=== PATIENT | female | born 1940 | race Caucasian/White ===

== ENCOUNTER 2023-10-06 21:14 | Inpatient (IN) | payer MEDICARE, BC ==
[~2023-10-06] VITALS: Ht 165.1 cm; Wt 62.6 kg
[2023-10-06] MEDS ORDERED: ACET-3117 PO (21:51)
[2023-10-06] MEDS ORDERED: LIDOCAINE VISCUS PO (21:51)
[2023-10-06] MEDS ORDERED: NYST5ORA PO (21:51)
[2023-10-06] MEDS ORDERED: LEVO100T10 PO (21:51)
[2023-10-06] MEDS ORDERED: ONDA-104 PO (21:51)
[2023-10-06] MEDS ORDERED: MAGN400O6 PO (21:51)
[2023-10-06] MEDS ORDERED: NIFE30TA91 PO (21:51)
[2023-10-06] MEDS ORDERED: DIME25TA2 PO (21:51)
[2023-10-06] MEDS ORDERED: PANT40TA2 PO (21:51)
[2023-10-06] MEDS ORDERED: SERT50TA PO (21:51)
[2023-10-06] MEDS ORDERED: LORA0.5T48 PO (21:51)
[2023-10-06] MEDS ORDERED: SIMV-49 PO (21:51)
[2023-10-06] MEDS ORDERED: DOCU100C36 PO (21:51)
[2023-10-06] MEDS ORDERED: NA P133E RC (21:51)
[2023-10-06] MEDS ORDERED: LEVE500T9 PO (21:51)
[2023-10-06] MEDS ORDERED: DEXA4TAB PO (21:51)
[2023-10-06] MEDS ORDERED: RIVA20TA PO (21:51)
[2023-10-06] MEDS ORDERED: VALS160T2 PO (21:51)
[2023-10-06] MEDS ORDERED: BISA10SU61 RC (21:51)
[2023-10-06 22:04] LABS: BASOPHILS % (AUTO) 0.3 % (0.0-2.0); HEMATOCRIT 35.9 % (31.2-41.9); HEMOGLOBIN 11.6 g/dL (10.9-14.3); LYMPHOCYTES # (AUTO) 0.7 K/uL (0.8-4.8); LYMPHOCYTES % (AUTO) 7.9 % (20.5-51.5); MEAN CORPUSCULAR HEMOGLOBIN 25.8 uug (24.7-32.8); MEAN CORPUSCULAR HGB CONC 32 g/dL (32.3-35.6); MEAN CORPUSCULAR VOLUME 80.2 fL (75.5-95.3); MONOCYTES # (AUTO) 0.3 K/uL (0.1-1.30); MONOCYTES % (AUTO) 3.2 % (0.0-11.0); NEUTROPHILS # (AUTO) 8.2 K/uL (1.8-8.9); NEUTROPHILS % (AUTO) 88.6 % (38.5-71.5); PLATELET COUNT (AUTO) 348 K/uL (179-408); RED BLOOD CELL COUNT(AUTO) 4.48 MIL/uL (3.63-4.92); RED CELL DISTRIBUTION WIDTH 18.2 % (12.3-17.7); WHITE BLOOD COUNT (AUTO) 9.2 K/uL (3.8-11.8)
[2023-10-06 22:05] LABS: DIFFERENTIAL COMMENT 1
[2023-10-06 22:14] LABS: CARBON DIOXIDE 29 mmol/L (21-32); CHLORIDE 101 mmol/L (98-107); CREATININE 0.7 mg/dL (0.6-1.3); GLUCOSE 160 mg/dL (74-106); SODIUM SERUM 139 mmol/L (136-145); UREA NITROGEN, BLOOD 23 mg/dL (7-18)
[2023-10-06 22:27] LABS: ALANINE AMINOTRANSFERASE 54 U/L (14-59); ALBUMIN 2.3 g/dL (3.4-5.0); ALKALINE PHOSPHATASE 961 U/L (50-136); ASPARTATE AMINOTRANSFERASE 14 U/L (15-37); BILIRUBIN,TOTAL 0.7 mg/dL (0.2-1.0); NT-PRO BNP 482 pg/mL (0-125); TOTAL PROTEIN, SERUM 6.1 g/dL (6.4-8.2)
[2023-10-06] MEDS ORDERED: IV NORMAL SALINE 1000 ML BAG IV ONE (23:15)
[2023-10-06] MEDS ORDERED: CEFTRIAXONE 1 G in IV DEXTROSE 5% 50 ML IV ONE (23:30)
[2023-10-06] MEDS ORDERED: CEFTRIAXONE /D5W 50ML IVPB **ER PYXIS IV ONE (23:40)
[2023-10-07] MEDS ORDERED: MAGNESIUM HYDROXIDE 30 ML LIQUID UDC PO PRN (00:15)
[2023-10-07] MEDS ORDERED: LORAZEPAM 0.5 MG TABLET PO PRN (00:15)
[2023-10-07] MEDS ORDERED: DEXTROSE 50% 50 ML DISP.SYRIN IV PRN (00:15)
[2023-10-07] MEDS ORDERED: ONDANSETRON 4 MG/2 ML VIAL IV PRN (00:15)
[2023-10-07] MEDS ORDERED: BISACODYL 10 MG SUPP.RECT RC PRN (00:15)
[2023-10-07] MEDS ORDERED: ACETAMINOPHEN 325 MG TABLET PO PRN (00:15)
[2023-10-07] MEDS ORDERED: LORAZEPAM 2 MG/1 ML VIAL IV PRN (00:15)
[2023-10-07] MEDS ORDERED: REMEDY ESSENTIAL ZINC PASTE 113 GM TP PRN (00:15)
[2023-10-07] MEDS ORDERED: NYSTATIN SUSPENSION 5 ML LIQUID UDC PO SCH (06:00)
[2023-10-07] MEDS ORDERED: DEXAMETHASONE 4 MG TABLET PO SCH (06:00)
[2023-10-07] MEDS ORDERED: DEXAMETHASONE 1 MG TABLET ONE (07:01)
[2023-10-07] MEDS: BLOOD SUGAR DIAGNOSTIC 1 EACH STRIP VI SCH ×3 (07:30→16:57)
[2023-10-07] MEDS: PANTOPRAZOLE SODIUM 40 MG TABLET.DR PO SCH (08:45)
[2023-10-07] MEDS: LEVOTHYROXINE SODIUM 100 MCG TABLET PO SCH (08:45)
[2023-10-07] MEDS ORDERED: LEVOTHYROXINE SODIUM 100 MCG TABLET ONE (08:50)
[2023-10-07] MEDS ORDERED: NIFEdipine XL 30 MG TABSR PO ONE (08:50)
[2023-10-07] MEDS ORDERED: DOCUSATE SODIUM 100 MG CAPSULE PO ONE (08:50)
[2023-10-07] MEDS ORDERED: PANTOPRAZOLE SODIUM 40 MG TABLET.DR PO ONE (08:50)
[2023-10-07] MEDS ORDERED: levETIRAcetam 250 MG TABLET ONE (08:50)
[2023-10-07] MEDS ORDERED: SERTRALINE HCL 50 MG TABLET ONE (08:51)
[2023-10-07] MEDS ORDERED: levETIRAcetam 500 MG TABLET PO SCH (09:00)
[2023-10-07] MEDS ORDERED: RIVAROXABAN 20 MG PO SCH (09:00)
[2023-10-07] MEDS ORDERED: Medication Not On Formulary EA (Nifedipine (Nifedipine Er) 30 MG) PO SCH (09:00)
[2023-10-07] MEDS: DOCUSATE SODIUM 100 MG CAPSULE PO SCH (09:01)
[2023-10-07] MEDS: VALSARTAN 160 MG TABLET PO SCH (09:05)
[2023-10-07] MEDS: SERTRALINE HCL 50 MG TABLET PO SCH (09:07)
[2023-10-07] MEDS: NIFEdipine XL 30 MG TABSR PO SCH (09:07)
[2023-10-07] MEDS ORDERED: CLONIDINE HCL 0.1 MG TABLET PO PRN (10:00)
[2023-10-07] MEDS ORDERED: DEXAMETHASONE SOD PHOSPHATE 10 MG INJ IV SCH (10:00)
[2023-10-07] MEDS ORDERED: DEXAMETHASONE SOD PHOSPHATE 10 MG INJ ONE (11:05)
[2023-10-07] MEDS: INSULIN REGULAR, HUMAN 300 UNIT/3 ML VIAL SQ PRN ×2 (11:27→16:58)
[2023-10-07] MEDS: NYSTATIN SUSPENSION 5 ML LIQUID UDC PO SCH ×2 (11:39→17:33)
[2023-10-07] MEDS ORDERED: RIVAROXABAN 10 MG TABLET PO SCH (17:00)
[2023-10-07] MEDS ORDERED: RIVAROXABAN 10 MG TABLET ONE (17:31)
[2023-10-07] MEDS ORDERED: levETIRAcetam 500 MG/5 ML LIQUID UDC ONE (17:31)
[2023-10-07] MEDS: levETIRAcetam 500 MG TABLET PO SCH (17:33)
[2023-10-07] MEDS ORDERED: DEXAMETHASONE SOD PHOSPHATE 4 MG INJ ONE (21:29)
[2023-10-07] MEDS: DEXAMETHASONE SOD PHOSPHATE 10 MG INJ IV SCH (21:30)
[2023-10-08] MEDS ORDERED: DEXAMETHASONE SOD PHOSPHATE 4 MG INJ ONE ×3 (03:35→17:55)
[2023-10-08] MEDS ORDERED: SIMVASTATIN 40 MG TABLET ONE (03:35)
[2023-10-08] MEDS: NYSTATIN SUSPENSION 5 ML LIQUID UDC PO SCH ×4 (05:00→17:46)
[2023-10-08] MEDS: DEXAMETHASONE SOD PHOSPHATE 10 MG INJ IV SCH ×3 (05:00→18:00)
[2023-10-08] MEDS: SIMVASTATIN 40 MG TABLET PO SCH (05:00)
[2023-10-08] MEDS: BLOOD SUGAR DIAGNOSTIC 1 EACH STRIP VI SCH ×4 (05:00→21:15)
[2023-10-08 06:03] LABS: BASOPHILS % (AUTO) 0.1 % (0.0-2.0); HEMATOCRIT 37.9 % (31.2-41.9); LYMPHOCYTES # (AUTO) 0.9 K/uL (0.8-4.8); MEAN CORPUSCULAR HEMOGLOBIN 25.4 uug (24.7-32.8); MEAN CORPUSCULAR HGB CONC 32 g/dL (32.3-35.6); MONOCYTES # (AUTO) 0.4 K/uL (0.1-1.30); MONOCYTES % (AUTO) 2.9 % (0.0-11.0); NEUTROPHILS # (AUTO) 13.4 K/uL (1.8-8.9); PLATELET COUNT (AUTO) 374 K/uL (179-408); RED BLOOD CELL COUNT(AUTO) 4.73 MIL/uL (3.63-4.92); RED CELL DISTRIBUTION WIDTH 17.9 % (12.3-17.7); WHITE BLOOD COUNT (AUTO) 14.7 K/uL (3.8-11.8)
[2023-10-08 06:09] LABS: DIFFERENTIAL COMMENT 1
[2023-10-08 06:29] LABS: CALCIUM 9.3 mg/dL (8.5-10.1); CARBON DIOXIDE 27 mmol/L (21-32); CHLORIDE 104 mmol/L (98-107); CHOLESTEROL 162 mg/dL (<200); CREATININE 0.5 mg/dL (0.6-1.3); FERRITIN 537 ng/mL (8-252); GLUCOSE 148 mg/dL (74-106); HDL CHOLESTEROL 73 mg/dL (40-60); MAGNESIUM 2.2 mg/dL (1.8-2.4); PHOSPHOROUS 3.7 mg/dL (2.5-4.9); POTASSIUM 3.6 mmol/L (3.5-5.1); SODIUM SERUM 140 mmol/L (136-145); TRIGLYCERIDES 97 MG/DL (30-150); UREA NITROGEN, BLOOD 21 mg/dL (7-18)
[2023-10-08] MEDS ORDERED: CLONIDINE HCL 0.1 MG TABLET ONE (06:38)
[2023-10-08 06:41] LABS: IRON, SERUM 24 ug/dL (50-175)
[2023-10-08] MEDS: PANTOPRAZOLE SODIUM 40 MG TABLET.DR PO SCH (07:00)
[2023-10-08] MEDS: LEVOTHYROXINE SODIUM 100 MCG TABLET PO SCH (07:00)
[2023-10-08] MEDS ORDERED: PANTOPRAZOLE SODIUM 40 MG TABLET.DR PO ONE (08:11)
[2023-10-08] MEDS ORDERED: LEVOTHYROXINE SODIUM 100 MCG TABLET ONE (08:12)
[2023-10-08] MEDS ORDERED: VALSARTAN 80 MG TABLET ONE (08:58)
[2023-10-08] MEDS ORDERED: DOCUSATE SODIUM 100 MG CAPSULE PO ONE (08:58)
[2023-10-08] MEDS ORDERED: ONDANSETRON 4 MG/2 ML VIAL ONE (08:59)
[2023-10-08] MEDS ORDERED: NIFEdipine XL 30 MG TABSR PO ONE (09:10)
[2023-10-08] MEDS ORDERED: LORAZEPAM 0.5 MG TABLET ONE (09:22)
[2023-10-08] MEDS: DOCUSATE SODIUM 100 MG CAPSULE PO SCH (09:33)
[2023-10-08] MEDS: VALSARTAN 160 MG TABLET PO SCH (09:34)
[2023-10-08] MEDS: SERTRALINE HCL 50 MG TABLET PO SCH (09:34)
[2023-10-08] MEDS: NIFEdipine XL 30 MG TABSR PO SCH (09:34)
[2023-10-08] MEDS: levETIRAcetam 500 MG TABLET PO SCH (09:34)
[2023-10-08] MEDS ORDERED: SERTRALINE HCL 50 MG TABLET ONE (09:38)
[2023-10-08] MEDS: INSULIN REGULAR, HUMAN 300 UNIT/3 ML VIAL SQ PRN ×3 (11:37→21:39)
[2023-10-08] MEDS: IV NS 1000 ML 1,000 ML IV PRN (11:37)
[2023-10-08] MEDS ORDERED: levETIRAcetam 500 MG/5 ML VIAL IV ONE (20:54)
[2023-10-08] MEDS: levETIRAcetam IV 500 MG in IV DEXTROSE 5% 100 ML IV SCH (21:07)
[2023-10-08 23:30] VITALS: BP 170/75; TEMP 96.2; O2SAT 96
[2023-10-09] VITALS (10 sets, daily range): BP systolic 128–171; BP diastolic 61–79; TEMP 96–98.7; O2SAT 82–98
[2023-10-09] MEDS: DEXAMETHASONE SOD PHOSPHATE 10 MG INJ IV SCH ×5 (00:02→23:30)
[2023-10-09] MEDS: IV NS 1000 ML 1,000 ML IV PRN (00:02)
[2023-10-09] MEDS: hydrALAZINE HCL 20 MG/1 ML VIAL IV PRN ×2 (00:44→11:25)
[2023-10-09] MEDS: NYSTATIN SUSPENSION 5 ML LIQUID UDC PO SCH ×5 (00:45→23:30)
[2023-10-09] MEDS: PANTOPRAZOLE SODIUM 40 MG TABLET.DR PO SCH (06:08)
[2023-10-09] MEDS: LEVOTHYROXINE SODIUM 100 MCG TABLET PO SCH (06:08)
[2023-10-09] MEDS: BLOOD SUGAR DIAGNOSTIC 1 EACH STRIP VI SCH ×4 (06:09→21:29)
[2023-10-09 07:04] LABS: BASOPHILS % (AUTO) 0.1 % (0.0-2.0); HEMATOCRIT 37.5 % (31.2-41.9); HEMOGLOBIN 11.5 g/dL (10.9-14.3); LYMPHOCYTES # (AUTO) 0.7 K/uL (0.8-4.8); LYMPHOCYTES % (AUTO) 3.9 % (20.5-51.5); MEAN CORPUSCULAR HEMOGLOBIN 25.4 uug (24.7-32.8); MEAN CORPUSCULAR HGB CONC 31 g/dL (32.3-35.6); MEAN CORPUSCULAR VOLUME 82.5 fL (75.5-95.3); MONOCYTES # (AUTO) 0.5 K/uL (0.1-1.30); MONOCYTES % (AUTO) 2.5 % (0.0-11.0); NEUTROPHILS # (AUTO) 17.1 K/uL (1.8-8.9); NEUTROPHILS % (AUTO) 93.5 % (38.5-71.5); PLATELET COUNT (AUTO) 338 K/uL (179-408); RED BLOOD CELL COUNT(AUTO) 4.54 MIL/uL (3.63-4.92); RED CELL DISTRIBUTION WIDTH 18.3 % (12.3-17.7); WHITE BLOOD COUNT (AUTO) 18.2 K/uL (3.8-11.8)
[2023-10-09 07:20] LABS: DIFFERENTIAL COMMENT 1
[2023-10-09 07:24] LABS: CARBON DIOXIDE 25 mmol/L (21-32); CHLORIDE 108 mmol/L (98-107); CREATININE 0.5 mg/dL (0.6-1.3); GLUCOSE 138 mg/dL (74-106); MAGNESIUM 2.4 mg/dL (1.8-2.4); PHOSPHOROUS 3.1 mg/dL (2.5-4.9); POTASSIUM 3.5 mmol/L (3.5-5.1); SODIUM SERUM 144 mmol/L (136-145); UREA NITROGEN, BLOOD 28 mg/dL (7-18)
[2023-10-09 07:39] LABS: CALCIUM 9.3 mg/dL (8.5-10.1)
[2023-10-09] MEDS: DOCUSATE SODIUM 100 MG CAPSULE PO SCH (09:50)
[2023-10-09] MEDS: SERTRALINE HCL 50 MG TABLET PO SCH (09:50)
[2023-10-09] MEDS: VALSARTAN 160 MG TABLET PO SCH (09:51)
[2023-10-09] MEDS: NIFEdipine XL 30 MG TABSR PO SCH (09:51)
[2023-10-09] MEDS: levETIRAcetam IV 500 MG in IV DEXTROSE 5% 100 ML IV SCH ×2 (10:36→21:29)
[2023-10-09] MEDS ORDERED: hydrALAZINE HCL 20 MG/1 ML VIAL IV PRN (11:47)
[2023-10-09] MEDS: IV D5 1/2 NS 1000 ML 1,000 ML IV SCH (12:27)
[2023-10-09 16:12] LABS: ABG BASE EXCESS 1.4 mmol/L (-2.0-2.0); ABG HCO3 24.7 mmol/L (22.0-26.0); ABG PCO2 34.9 mmHg (35.0-48.0); ABG PH 7.468 (7.340-7.440); ABG PO2 53.8 mmHg (75.0-100.0); ABG TOTAL HEMOGLOBIN 12.6 G/dL (12.0-16.0); AaDO2 90.1 mmHg; COHb 0.6 % (0.0-3.9); MetHb 0.1 % (0.0-1.5); O2Hb 87.1 % (94.0-97.0)
[2023-10-09] MEDS: SIMVASTATIN 40 MG TABLET PO SCH (20:43)
[2023-10-10] VITALS (9 sets, daily range): BP systolic 138–159; BP diastolic 60–74; TEMP 97.1–98.6; O2SAT 93–98
[2023-10-10] MEDS: IV D5 1/2 NS 1000 ML 1,000 ML IV SCH ×3 (01:07→18:34)
[2023-10-10] MEDS: DEXAMETHASONE SOD PHOSPHATE 10 MG INJ IV SCH ×3 (05:18→18:12)
[2023-10-10] MEDS: NYSTATIN SUSPENSION 5 ML LIQUID UDC PO SCH ×3 (05:18→18:12)
[2023-10-10] MEDS: PANTOPRAZOLE SODIUM 40 MG TABLET.DR PO SCH (06:35)
[2023-10-10] MEDS: LEVOTHYROXINE SODIUM 100 MCG TABLET PO SCH (06:36)
[2023-10-10] MEDS: BLOOD SUGAR DIAGNOSTIC 1 EACH STRIP VI SCH ×4 (06:42→23:08)
[2023-10-10] MEDS: VALSARTAN 160 MG TABLET PO SCH (09:00)
[2023-10-10] MEDS: DOCUSATE SODIUM 100 MG/10 ML LIQUID UDC PO SCH (09:00)
[2023-10-10] MEDS: SERTRALINE HCL 50 MG TABLET PO SCH (09:00)
[2023-10-10] MEDS: NIFEdipine XL 30 MG TABSR PO SCH (09:00)
[2023-10-10] MEDS ORDERED: DOCUSATE SODIUM 100 MG/10 ML LIQUID UDC PO SCH (09:00)
[2023-10-10] MEDS: levETIRAcetam IV 500 MG in IV DEXTROSE 5% 100 ML IV SCH ×2 (09:03→23:16)
[2023-10-10] MEDS: INSULIN REGULAR, HUMAN 300 UNIT/3 ML VIAL SQ PRN ×3 (09:05→23:40)
[2023-10-10] MEDS ORDERED: ALBUTEROL SULFATE 2.5 MG/3 ML NEBU NEB PRN (11:15)
[2023-10-10] MEDS ORDERED: IPRATROPIUM BROMIDE 0.5 MG/2.5 ML NEBU NEB PRN (11:15)
[2023-10-10 15:52] LABS: *BILIRUBIN,URIN NEGATIVE (NEGATIVE); *BLOOD, URINE 2+ (NEGATIVE); *CLARITY,URINE CLEAR (CLEAR); *COLOR,URINE YELLOW (YELLOW); *KETONES,URINE NEGATIVE (NEGATIVE); *PROTEIN,URINE 1+ (NEGATIVE); *UROBILINOGEN,URINE 0.2 E.U./dl (NORMAL); LEUKOCYTE ESTERASE ,URINE TRACE (NEGATIVE); NITRITE, URINE NEGATIVE (NEGATIVE); UGLUCOSE NEGATIVE (NEGATIVE)
[2023-10-10 16:24] LABS: BACTERIA,URINE FEW /HPF (NONE SEEN); RBC,URINE 0-3 /HPF (0-3); SQUAMOUS EPITHELIAL CELL,UR FEW /HPF (NONE SEEN)
[2023-10-10] MEDS: ENOXAPARIN SODIUM 30 MG/0.3 ML DISP.SYRIN SUBCUT SCH (16:43)
[2023-10-10] MEDS: SIMVASTATIN 40 MG TABLET PO SCH (23:25)
[2023-10-10] MEDS ORDERED: ACETAMINOPHEN 650 MG SUPP.RECT RC PRN (23:30)
[2023-10-11] MEDS: DEXAMETHASONE SOD PHOSPHATE 10 MG INJ IV SCH ×5 (00:44→23:05)
[2023-10-11] MEDS ORDERED: MORPHINE SULFATE 2 MG/1 ML DISP.SYRIN SQ PRN (02:15)
[2023-10-11] MEDS: MORPHINE SULFATE 2 MG/1 ML DISP.SYRIN IVP PRN ×3 (02:31→22:26)
[2023-10-11 04:00] VITALS: BP 134/62; TEMP 97; O2SAT 99
[2023-10-11] MEDS: NYSTATIN SUSPENSION 5 ML LIQUID UDC PO SCH ×5 (06:00→23:04)
[2023-10-11] MEDS: LEVOTHYROXINE SODIUM 100 MCG TABLET PO SCH (06:36)
[2023-10-11] MEDS: PANTOPRAZOLE SODIUM 40 MG TABLET.DR PO SCH (06:36)
[2023-10-11] MEDS: BLOOD SUGAR DIAGNOSTIC 1 EACH STRIP VI SCH ×4 (08:15→21:00)
[2023-10-11 08:31] LABS: HEMATOCRIT 37.4 % (31.2-41.9); HEMOGLOBIN 11.5 g/dL (10.9-14.3); LYMPHOCYTES # (AUTO) 0.6 K/uL (0.8-4.8); LYMPHOCYTES % (AUTO) 2.3 % (20.5-51.5); MEAN CORPUSCULAR HEMOGLOBIN 24.8 uug (24.7-32.8); MEAN CORPUSCULAR HGB CONC 31 g/dL (32.3-35.6); MONOCYTES # (AUTO) 0.4 K/uL (0.1-1.30); MONOCYTES % (AUTO) 1.6 % (0.0-11.0); NEUTROPHILS # (AUTO) 23.3 K/uL (1.8-8.9); NEUTROPHILS % (AUTO) 96.1 % (38.5-71.5); PLATELET COUNT (AUTO) 294 K/uL (179-408); RED BLOOD CELL COUNT(AUTO) 4.62 MIL/uL (3.63-4.92); RED CELL DISTRIBUTION WIDTH 18.1 % (12.3-17.7); WHITE BLOOD COUNT (AUTO) 24.3 K/uL (3.8-11.8)
[2023-10-11] MEDS: INSULIN REGULAR, HUMAN 300 UNIT/3 ML VIAL SQ PRN ×3 (08:34→17:16)
[2023-10-11] MEDS: NIFEdipine XL 30 MG TABSR PO SCH (08:37)
[2023-10-11] MEDS: DOCUSATE SODIUM 100 MG/10 ML LIQUID UDC PO SCH (08:37)
[2023-10-11] MEDS: VALSARTAN 160 MG TABLET PO SCH (08:37)
[2023-10-11] MEDS: SERTRALINE HCL 50 MG TABLET PO SCH (08:38)
[2023-10-11 08:42] LABS: DIFFERENTIAL COMMENT 1
[2023-10-11 08:47] LABS: CALCIUM 9.2 mg/dL (8.5-10.1); CARBON DIOXIDE 29 mmol/L (21-32); CHLORIDE 104 mmol/L (98-107); CREATININE 0.5 mg/dL (0.6-1.3); GLUCOSE 228 mg/dL (74-106); PHOSPHOROUS 2.8 mg/dL (2.5-4.9); POTASSIUM 3.4 mmol/L (3.5-5.1); SODIUM SERUM 140 mmol/L (136-145); UREA NITROGEN, BLOOD 22 mg/dL (7-18)
[2023-10-11 08:50] LABS: C-REACTIVE PROTEIN 17.77 mg/dL (0.00-0.30)
[2023-10-11] MEDS: levETIRAcetam IV 500 MG in IV DEXTROSE 5% 100 ML IV SCH ×2 (09:23→21:00)
[2023-10-11] MEDS: IV D5 1/2 NS 1000 ML 1,000 ML IV SCH ×2 (09:26→17:07)
[2023-10-11] MEDS: POTASSIUM CHLORIDE 50 ML IV SCH ×2 (10:11→12:01)
[2023-10-11 11:44] VITALS: BP 154/72; TEMP 97.5; O2SAT 90
[2023-10-11 13:50] VITALS: O2SAT 95
[2023-10-11 14:55] VITALS: O2SAT 93
[2023-10-11 16:00] VITALS: BP 108/62; TEMP 97.5; O2SAT 90
[2023-10-11] MEDS: ENOXAPARIN SODIUM 30 MG/0.3 ML DISP.SYRIN SUBCUT SCH (17:22)
[2023-10-11 20:19] VITALS: BP 108/54; TEMP 97.2; O2SAT 85
[2023-10-11] MEDS: SIMVASTATIN 40 MG TABLET PO SCH (21:00)
[2023-10-12] MEDS: DEXAMETHASONE SOD PHOSPHATE 10 MG INJ IV SCH ×2 (06:00→12:36)
[2023-10-12] MEDS: NYSTATIN SUSPENSION 5 ML LIQUID UDC PO SCH ×2 (06:00→12:36)
[2023-10-12] MEDS: PANTOPRAZOLE SODIUM 40 MG TABLET.DR PO SCH (06:15)
[2023-10-12] MEDS: IV D5 1/2 NS 1000 ML 1,000 ML IV SCH (06:15)
[2023-10-12] MEDS: LEVOTHYROXINE SODIUM 100 MCG TABLET PO SCH (06:15)
[2023-10-12] MEDS: BLOOD SUGAR DIAGNOSTIC 1 EACH STRIP VI SCH ×2 (06:15→12:28)
[2023-10-12] MEDS: MORPHINE SULFATE 2 MG/1 ML DISP.SYRIN IVP PRN ×2 (06:21→09:41)
[2023-10-12 07:40] LABS: HEMATOCRIT 35.8 % (31.2-41.9); HEMOGLOBIN 11.3 g/dL (10.9-14.3); LYMPHOCYTES # (AUTO) 0.7 K/uL (0.8-4.8); LYMPHOCYTES % (AUTO) 2.9 % (20.5-51.5); MEAN CORPUSCULAR HEMOGLOBIN 25.2 uug (24.7-32.8); MEAN CORPUSCULAR HGB CONC 32 g/dL (32.3-35.6); MEAN CORPUSCULAR VOLUME 79.7 fL (75.5-95.3); MONOCYTES # (AUTO) 0.2 K/uL (0.1-1.30); MONOCYTES % (AUTO) 0.8 % (0.0-11.0); NEUTROPHILS # (AUTO) 23.9 K/uL (1.8-8.9); NEUTROPHILS % (AUTO) 96.3 % (38.5-71.5); PLATELET COUNT (AUTO) 244 K/uL (179-408); RED BLOOD CELL COUNT(AUTO) 4.49 MIL/uL (3.63-4.92); RED CELL DISTRIBUTION WIDTH 18.6 % (12.3-17.7); WHITE BLOOD COUNT (AUTO) 24.9 K/uL (3.8-11.8)
[2023-10-12 07:53] LABS: CALCIUM 8.9 mg/dL (8.5-10.1); CARBON DIOXIDE 21 mmol/L (21-32); CHLORIDE 106 mmol/L (98-107); CREATININE 0.8 mg/dL (0.6-1.3); GLUCOSE 132 mg/dL (74-106); MAGNESIUM 1.9 mg/dL (1.8-2.4); PHOSPHOROUS 3.6 mg/dL (2.5-4.9); POTASSIUM 4.1 mmol/L (3.5-5.1); SODIUM SERUM 139 mmol/L (136-145); UREA NITROGEN, BLOOD 34 mg/dL (7-18)
[2023-10-12 08:02] LABS: DIFFERENTIAL COMMENT 1
[2023-10-12] MEDS: NIFEdipine XL 30 MG TABSR PO SCH (09:00)
[2023-10-12] MEDS: SERTRALINE HCL 50 MG TABLET PO SCH (09:00)
[2023-10-12] MEDS: VALSARTAN 160 MG TABLET PO SCH (09:00)
[2023-10-12] MEDS: DOCUSATE SODIUM 100 MG/10 ML LIQUID UDC PO SCH (09:00)
[2023-10-12] MEDS: levETIRAcetam IV 500 MG in IV DEXTROSE 5% 100 ML IV SCH (09:45)
[2023-10-12] MEDS: ALBUTEROL SULFATE 1.25 MG/3 ML NEBU NEB SCH ×2 (11:30→15:56)
[2023-10-12] MEDS: IPRATROPIUM BROMIDE 0.5 MG/2.5 ML NEBU NEB SCH ×2 (11:30→15:56)
[2023-10-12] MEDS ORDERED: ALBU2.5V7 NEB (11:38)
[2023-10-12] MEDS ORDERED: ACET200V5 NEB (11:38)
[2023-10-12] MEDS ORDERED: LORA2VIA6 IV (11:38)
[2023-10-12] MEDS ORDERED: ALBU1.25 NEB (11:38)
[2023-10-12] MEDS ORDERED: ACET650S13 RC (11:38)
[2023-10-12] MEDS ORDERED: NIFE-35 PO (11:38)
[2023-10-12] MEDS ORDERED: Morphine Sulfate Inj IVP (11:38)
[2023-10-12] MEDS ORDERED: NYST5ORA PO (11:38)
[2023-10-12 14:30] VITALS: O2SAT 90
[2023-10-12 14:40] VITALS: O2SAT 92; O2SAT 93
[2023-10-12 14:50] VITALS: O2SAT 93
[2023-10-12] MEDS ORDERED: ACETYLCYSTEINE 20% 800 MG/4 ML VIAL NEB SCH (15:30)
== END 2023-10-12 14:30 | DRG 180 ==
LOC: ER 21:16 → TRANSITION 23:20 → TELE3 10-08 22:46 → MEDSURG3 10-10 16:28
PROVIDERS: ADMIT Nurse Practitioner Family; ATTEND Internal Medicine
DX: C34.90 Malignant neoplasm of unspecified part of unspecified bronchus or lung (principal); E43 Unspecified severe protein-calorie malnutrition; J96.01 Acute respiratory failure with hypoxia; G93.6 Cerebral edema; I21.4 Non-ST elevation (NSTEMI) myocardial infarction; C79.31 Secondary malignant neoplasm of brain; J98.11 Atelectasis; Z66 Do not resuscitate; Z51.5 Encounter for palliative care; G81.94 Hemiplegia, unspecified affecting left nondominant side; B37.0 Candidal stomatitis; N39.0 Urinary tract infection, site not specified; G51.0 Bell's palsy; I48.0 Paroxysmal atrial fibrillation; R13.10 Dysphagia, unspecified; F41.9 Anxiety disorder, unspecified; E88.09 Other disorders of plasma-protein metabolism, not elsewhere classified; T17.990A Other foreign object in respiratory tract, part unspecified in causing asphyxiation, initial encounter; Z92.3 Personal history of irradiation; W44.F9XA Other object of natural or organic material, entering into or through a natural orifice, initial encounter; Y92.230 Patient room in hospital as the place of occurrence of the external cause; D72.829 Elevated white blood cell count, unspecified; T38.0X5A Adverse effect of glucocorticoids and synthetic analogues, initial encounter; D50.9 Iron deficiency anemia, unspecified; I11.9 Hypertensive heart disease without heart failure; E78.5 Hyperlipidemia, unspecified; E11.9 Type 2 diabetes mellitus without complications; Z86.73 Personal history of transient ischemic attack (TIA), and cerebral infarction without residual deficits; Z91.81 History of falling; M15.9 Polyosteoarthritis, unspecified; Z79.01 Long term (current) use of anticoagulants; E86.0 Dehydration
CPT/HCPCS: 36415; 36600; 70450; 70486; 71045; 72125; 82803; 83550; 83605; 83735; 84100; 84484; 85025; 85730; 86140; 87040; 93005; 93307; A4606; A6213; G0378; J0360; J0696; J1100; J1650; J1815; J1953; J2270; J2405; J3480; J3590; J7040; J7060; J8540